=== PATIENT | female | born 1965 | race Caucasian/White ===

== ENCOUNTER 2018-10-12 09:57 | Day surgery (SDC) | payer MEDICAID ==
[~2018-10-12] VITALS: Ht 160 cm; Wt 97.5 kg
[2018-10-12] MEDS: MIDAZOLAM HCL 5 MG/5 ML VIAL ONE (11:39)
[2018-10-12] MEDS: DIPHENHYDRAMINE INJ 50 MG/ML VIAL ONE (11:41)
[2018-10-12 13:46] VITALS: BP_SYST 172
== END 2018-10-12 13:20 | disposition home or self-care (01) ==
LOC: SDS 09:57
PROVIDERS: ATTEND Internal Medicine
DX: M47.26 Other spondylosis with radiculopathy, lumbar region (principal); M79.10 Myalgia, unspecified site; F41.9 Anxiety disorder, unspecified; F32.9 Major depressive disorder, single episode, unspecified; I10 Essential (primary) hypertension; Z98.51 Tubal ligation status; Z88.0 Allergy status to penicillin; Z88.8 Allergy status to other drugs, medicaments and biological substances; Z79.899 Other long term (current) drug therapy
CPT/HCPCS: 62323; J1200; J2250; 76000

== ENCOUNTER 2019-09-29 10:16 | Day surgery (SDC) | payer MEDICAID ==
[2019-09-29] MEDS ORDERED: DIPHENHYDRAMINE INJ 50 MG/ML VIAL ONE (12:00)
[2019-09-29] MEDS ORDERED: MIDAZOLAM HCL 5 MG/5 ML VIAL ONE (12:00)
[2019-09-29 14:01] VITALS: BP_SYST 130
== END 2019-09-29 13:50 | disposition home or self-care (01) ==
LOC: SDS 10:16 → STU 10:19 → SDS 13:50
PROVIDERS: ATTEND Internal Medicine
DX: M47.816 Spondylosis without myelopathy or radiculopathy, lumbar region (principal); M54.2 Cervicalgia; G89.4 Chronic pain syndrome; I10 Essential (primary) hypertension; F32.9 Major depressive disorder, single episode, unspecified; F41.9 Anxiety disorder, unspecified; Z79.899 Other long term (current) drug therapy; M54.5 Low back pain
CPT/HCPCS: 62323; J2250; 76000; G0378; J1200